=== PATIENT | female | born 1990 | race Caucasian/White ===

== ENCOUNTER → 2018-08-31 | Outpatient (CLI) | payer BC ==
--- NOTE | 2018-08-31 14:17 | US ---
EXAMINATION TYPE: US abdomen complete DATE OF EXAM: 08/31/2018 COMPARISON: NONE CLINICAL HISTORY: R10.9 ABD PAIN. Intermittent RUQ and pelvic pain x 4 weeks EXAM MEASUREMENTS: Liver Length: 15.7 cm Gallbladder Wall: 0.3 cm CBD: 0.5 cm Spleen: 11.8 cm Right Kidney: 11.2 x 4.6 x 5.0 cm Left Kidney: 11.2 x 4.4 x 4.6 cm Difficult and limited study due to patient body habitus Pancreas: visualized portions wnl, limited by overlying midline bowel gas Liver: Somewhat poorly penetrated by the ultrasound being Gallbladder: wnl Evidence for sonographic Louie's sign: no CBD: wnl Spleen: wnl Right Kidney: wnl Left Kidney: wnl Upper IVC: wnl Abd Aorta: proximal and distal portion wnl, mid portion obscured by overlying midline bowel gas No significant abnormality seen at this time to account for patient's clinical symptoms. There is no ascites. IMPRESSION: Exam somewhat limited technically. There may be underlying hepatic steatosis.
--- NOTE | 2018-08-31 14:29 | US ---
EXAMINATION TYPE: US pelvic complete DATE OF EXAM: 08/31/2018 COMPARISON: NONE CLINICAL HISTORY: R10.9 ABD PAIN. Intermittent RUQ and pelvic pain x 4 weeks, 1, para 1, hist ory of and cyst removed from right ovary. TECHNIQUE: . Transabdominal sonographic images of the pelvis were acquired. Transvaginal sonographi c images were medically necessary to better assess the following anatomy: endometrium and ovaries Date of LMP: 3 weeks ago EXAM MEASUREMENTS: Uterus: 8.8 x 4.4 x 5.8 cm Endometrial Stripe: 0.4 cm Right Ovary: 2.4 x 1.4 x 1.1 cm Left Ovary: not seen 1. Uterus: anteverted, heterogeneous 2. Endometrium: appears thin for patient's LMP 3. Right Ovary: wnl 4. Left Ovary: not seen due to overlying bowel gas 5. Bilateral Adnexa: wnl 6. Posterior cul-de-sac: small amount of free fluid IMPRESSION: Limited exam. Small amount of free fluid within the pelvis.
== END | disposition home or self-care (01) ==
LOC: RADUSWWP 09:39
PROVIDERS: ATTEND Family Medicine
DX: R10.9 Unspecified abdominal pain (principal)
CPT/HCPCS: 76700; 76830; 76856

== ENCOUNTER → 2020-06-20 | Outpatient (CLI) | payer BC ==
[2020-06-20 14:36] VITALS: BP 103/72; PULSE 75; RESP 16; TEMP 98.2; BMI 45.8
--- NOTE | 2020-06-20 19:03 | P.HPBAR ---
Bariatric H&P - History & Physicial H&P Date: 06/20/20 History & Physicial: Visit/CC: Initial Patient initial contact: Initial weight: 121.279 kg Initial weight in pounds: 267.38 Height: 5 ft 4 in Initial BMI: 45.8 Last weight: Current weight: 121.109 kg Current weight in pounds: 267.00 Current BMI: 45.8 [place] body weight (based on NIH guidelines): 54.431 kg Excess body weight loss: 0.2% The patient is a 29 year-old F who presents for Bariatric Assessment. Patient seen today in the bariatric clinic. She is interested in weight loss surgery. She went to a seminar that I put on in the recent past. Patient with BMI 46. She has tried various weight loss methods over the years. Patient is currently being worked up for worsening reflux. Underwent EGD by GI which showed retained food within the stomach. She has a gastric emptying study ordered on 07/03. Denies hiatal hernia. Says she had a HIDA scan that was normal. Is taking 2 separate antiacids with persistent acid reflux and intermittent vomiting. She states she is actually interested in gastric bypass. She says that she is interested in bypass because of her acid reflux. She is a current tobacco user. One half pack per day. Denies DVT or dysphagia. Review of Systems The patient denies any acute changes in vision or hearing, no dysphagia or odynophagia, no chest pain or shortness of breath, no dysuria or hematuria, no headache, no runny nose, no rectal bleeding or melena, no unexplained weight loss Past Medical History Past Medical History: GERD/Reflux Additional Past Medical History / Comment(s): Gastroparesis History of Any Multi-Drug Resistant Organisms: None Reported Past Surgical History: Section, Tonsillectomy Additional Past Surgical History / Comment(s): hx of ovarian cyst Past Anesthesia/Blood Transfusion Reactions: No Reported Reaction Smoking Status: Current every day smoker Surgical - Exam Vital Signs Temp Pulse Resp BP 98.2 F 75 16 103/72 06/20/20 14:34 06/20/20 14:34 06/20/20 14:34 06/20/20 14:34 Physical exam: General: Well-developed, well-nourished HEENT: Normocephalic, sclerae nonicteric Abdomen: Nontender, nondistended Extremities: No edema Neuro: Alert and oriented Bariatric Assessment & Plan (1) Morbid obesity with BMI of 45.0-49.9, adult Narrative/Plan: 29-year-old female with morbid obesity and gastric reflux. Recent GI workup noted. Patient states she is actually more interested in gastric bypass which may be a better option for her because of her bad reflux and possible gastric motility issue. Patient requires a 7 month supervised weight loss. She will continue on that with her primary care physician. We'll have her see Dr. Still for her next bariatric appointment to discuss options of bypass. Status: Acute Bariatric Checklist Checklist: Plan: Checklist: EGD: 1. Hiatal hernia: 2. H. Pylori: HgbA1c: Vitamin D: Smoking: Primary care physician referral: [facility] clearance: Cardiology clearance: Sleep study: Diet journal: VTE risk score: VTE risk level: Rehab needs at discharge:
== END | disposition home or self-care (01) ==
LOC: BARWHC3 13:55
PROVIDERS: ATTEND Surgery
DX: E66.01 Morbid (severe) obesity due to excess calories (principal); Z68.42 Body mass index [BMI] 45.0-49.9, adult; F17.200 Nicotine dependence, unspecified, uncomplicated
CPT/HCPCS: 99211

== ENCOUNTER → 2020-07-03 | Outpatient (CLI) | payer BC ==
--- NOTE | 2020-07-03 13:23 | NM ---
EXAMINATION TYPE: NM gastric emptying static DATE OF EXAM: 07/03/2020 COMPARISON: NONE HISTORY: K31.84 Gastroparesis Following administration of 2.04 mCi Tc 99m Sulfur Colloid with 4 oz scrambled liquid eggs and ice wa ter, projection images of the abdomen were obtained 5 minutes post ingestion. Patient Emptying Values 1 Hour 28 % 2 Hours 78 % 3 Hours 97 % 4 Hours 100 % Gastro-esophageal reflux: None IMPRESSION: Gastric emptying: Within normal limits Gastroesophageal reflux: None Gastric emptying normal percentage values: 30 minutes: <70% of retention (> 30% emptying) suggests abnormally fast emptying. 60 minutes: <90% retention (>10% emptying) is normal; less than 30% retention (>70% emptying) suggest s abnormally rapid emptying. 90 minutes: <65% retention (> 35% emptying) is normal. 120 minutes: <60% retention (> 40% emptying) is normal. 180 minutes: <30% retention (> 70% emptying) is normal. Gastric emptying T-1/2: Solid: The normal range is 60-105 minutes Liquid only: Normal range is 10-45 minutes. Liquid only-children: At 60 minutes, normal range is 44-58 % . Liquid only-infants: At 60 minutes, normal range is 32-64 %. Additional references: Gastric Emptying Scintigraphy [email or web address]://[email or web address]
== END | disposition home or self-care (01) ==
LOC: RADNMMAIN 06:47
PROVIDERS: ATTEND Internal Medicine Gastroenterology
DX: K31.84 Gastroparesis (principal)
CPT/HCPCS: 78264; A9541

== ENCOUNTER → 2022-09-22 | Outpatient (CLI) | payer BC, OTHER ==
--- NOTE | 2022-09-22 12:35 | CA ---
Exercise Stress Test Report Name: Barry Valentin Exam Date: 09/22/2022 09:02 Exam Location: [place] Stress Ht (in): 64 Wt (lb): 244 BSA: 2.13 Ordering Phys: Alton Roth MD Referring Phys: Gracy Florence PAC Technologist: Javed Garcia Age: 31 Gender: F : 1990 Procedure CPT: Indications: Z82.49 famiy hx ischemic heart disease ICD-10 Codes: Patient History: Medications: LAXIPRO Meds past 24 hrs: Pretest Chest Pain: STRESS TEST Rambo Protocol Exercise Duration (min:sec): 07:[address] Depressions (mm): 0 Angina Score: 0 Rubio Score: 7.23 Resting HR (bpm): 72 Peak HR (bpm): 174 Resting BP (mmHg): 101 / 73 Peak BP (mmHg): 154 / 72 MPHR: 188 Target HR: 160 % MPHR: 93 METS: 9.2 Total Dose: Peak Dose: Atropine: Double Product: 36862 BP Response: Normal Resting Blood Pressure - Appropriate Stress Termination: Reached target heart rate Stress Symptoms: NO SYMPTOMS Stress Summary: The patient's target heart rate was achieved, The hemodynamic response to exercise was normal ECG ANALYSIS Resting ECG: Sinus rhythm. Normal conduction. No arrhythmias. Normal repolarization. Stress ECG: No ECG evidence of ischemia with exercise. CONCLUSIONS Patient falls into low-risk group (DTS >= +5). This associates the patient with an annual CV mortality <= 0.5%. 1. Average exercise tolerance 2. Normal echocardiographic stress testing with no evidence of stress ischemia Dr. Janessa Barrera MD (Electronically Signed) Final Date: 22 September 2022 12:34
== END | disposition home or self-care (01) ==
LOC: RADNMMAIN 08:42
PROVIDERS: ATTEND Family Medicine
DX: Z82.49 Family history of ischemic heart disease and other diseases of the circulatory system (principal)
CPT/HCPCS: 93017

== ENCOUNTER → 2023-11-12 | Outpatient (CLI) | payer BC, OTHER ==
--- NOTE | 2023-11-12 15:50 | CT ---
EXAMINATION TYPE: CT abdomen pelvis w con DATE OF EXAM: 11/12/2023 HISTORY: abdominal pain and vomiting post cholecystectomy CT DLP: 1180.9mGycm Automated Exposure Control for Dose Reduction was Utilized. CONTRAST: CT scan of the abdomen and pelvis is performed with IV Contrast, patient injected with 100 mL of Isov ue 300. COMPARISON: None FINDINGS: LUNG BASES: No significant abnormality is appreciated. LIVER/GB: Cholecystectomy clips are seen. No suspicious fluid at this level. No biliary dilatation PANCREAS: No significant abnormality is seen. SPLEEN: No significant abnormality is seen. ADRENALS: No significant abnormality is seen. KIDNEYS: No significant abnormality is seen. BOWEL: Oral contrast has not reached distal ileal bowel loops. No abnormal small or large bowel dilat ation. UTERUS/ADNEXA: Anteverted uterus. Right ovary has a 2.2 cm rounded low dense lesion axial image 66. P ossible prominent follicle or simple small ovarian cyst. LYMPH NODES: No greater than 1cm abdominal or pelvic lymph nodes are appreciated. OSSEOUS STRUCTURES: No significant abnormality is seen. OTHER: Overlying section scar axial image 74 is noted. IMPRESSION: No significant acute finding is seen to account for patient's clinical symptoms.
== END | disposition home or self-care (01) ==
LOC: RADCTMAIN 13:38
PROVIDERS: ATTEND Family Medicine
DX: E86.0 Dehydration (principal); R11.2 Nausea with vomiting, unspecified; Z90.49 Acquired absence of other specified parts of digestive tract
CPT/HCPCS: 74177; Q9967

== ENCOUNTER → 2023-11-12 | Outpatient (CLI) | payer BC, OTHER | END | disposition home or self-care (01) | LOC: RADCTMAIN 13:32 | PROVIDERS: ATTEND Family Medicine | DX: Z53.9 Procedure and treatment not carried out, unspecified reason (principal) ==

== ENCOUNTER → 2024-03-28 | Outpatient (CLI) | payer BC, OTHER ==
[2024-03-28 16:02] LABS: C Reactive Protein <0.30 mg/dL (0.00-0.80); Rheumatoid Factor, Qnt <15 IU/mL (0-15)
[2024-03-28 16:44] LABS: Follicle Stimulating Hormone 7.4 mIU/mL; Luteinizing Hormone 10.5 mIU/mL
[2024-03-28 18:50] LABS: HIV 2 AB Non-Reactive (Non-Reactive); HIV AB P24 Non-Reactive (Non-Reactive); HIV P24 AG Non-Reactive (Non-Reactive)
== END | disposition home or self-care (01) ==
LOC: LABWHC1 12:29
PROVIDERS: ATTEND Family Medicine
DX: R61 Generalized hyperhidrosis (principal)
CPT/HCPCS: 36415; 83001; 83002; 84443; 85652; 86038; 86039; 86140; 86431; 87040; 87390

== ENCOUNTER → 2024-03-30 | Outpatient (CLI) | payer BC, OTHER ==
--- NOTE | 2024-04-04 14:35 | MR ---
EXAMINATION TYPE: MR cervical spine wo con DATE OF EXAM: 03/30/2024 COMPARISON: HISTORY: SHOULDER AND NECK PAIN X 1 MONTH CONTRAST: Performed utilizing mL intravenous gadolinium contrast. TECHNIQUE: Multiplanar multiecho imaging on a 3.0 Kristen magnet is performed through the cervical spin e. FINDINGS: The craniovertebral junction is normal. Vertebral body alignment is normal. C7-T1: No focal disc herniation or significant disc bulge is evident. No spinal canal stenosis or n eural foraminal stenosis is present. C6-7: Minimal disc bulge is present slightly greater to the left paracentral region. No cord contact is evident. No spinal canal stenosis or neural foraminal stenosis present.. C5-6: Mild disc bulge is present with mild anterior thecal sac compression. No cord contact is eviden t. No spinal canal stenosis or neural foraminal stenosis present. C4-5: Tiny central disc bulge is present with anterior thecal sac contact. No AP spinal canal stenosi s present. No cord contact is evident. Neural foramen are patent.. C3-4: No focal disc herniation or significant disc bulge is evident. No spinal canal stenosis or susan ral foraminal stenosis is present. C2-3: No focal disc herniation or significant disc bulge is evident. No spinal canal stenosis or susan ral foraminal stenosis is present. IMPRESSION: 1. Mild disc bulging at C5-6 and C6-7. No cord contact or spinal canal stenosis evident
== END | disposition home or self-care (01) ==
LOC: RADMRIMAIN 11:30
PROVIDERS: ATTEND Family Medicine
DX: M50.222 Other cervical disc displacement at C5-C6 level (principal); R20.2 Paresthesia of skin
CPT/HCPCS: 72141